=== PATIENT | male | born 1960 | race Caucasian/White ===

== ENCOUNTER 2017-03-30 11:49 | Emergency (ER) | payer OTHER ==
[2017-03-30] MEDS ORDERED: NS 1,000 ML IV ONE ×2 (12:46→13:08)
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
[2017-03-30 12:56] LABS: LEUKOCYTE ESTERASE,URINE NEGATIVE (NEGATIVE); NITRITE,URINE NEGATIVE (NEGATIVE); PH,URINE 6.5 (5.0-7.5)
[2017-03-30 13:12] LABS: % IMMATURE GRANULYOCYTES 0.4 % (0.0-1.1); ABSOLUTE IMMATURE GRANULOCYTES 0.04 10^3/uL (0.00-0.10); ADD DIFF? NO; ADD MORPH? NO; ADD SCAN? YES; FRAGMENT RBC FLAG 0 (0-99); HEMATOCRIT 47.3 % (40.0-51.0); HEMOGLOBIN 15.9 g/dL (13.7-17.5); LEFT SHIFT FLG 0 (0-99); LIPEMIA HEMOLYSIS FLAG 80 (0-99); MEAN CELL HEMOGLOBIN 30.4 pg (27.9-34.1); MEAN CELL HEMOGLOBIN CONCENTR. 33.6 g/dL (32.4-36.7); MEAN CELL VOLUME 90.4 fL (81.5-99.8); MEAN PLATELET VOLUME 8.9 fL (8.7-11.7); PLATELET CLUMPS FLAG 20 (0-99); PLATELET COUNT 263 10^3/uL (150-400); RED BLOOD CELL COUNT 5.23 10^6/uL (4.40-6.38); RED CELL DISTRIBUTION WIDTH 13.9 % (11.5-15.2)
[2017-03-30 13:35] LABS: ATYPICAL LYMPHOCYTE FLAG 180 (0-99)
[2017-03-30 13:37] LABS: SCAN POSITIVE
[2017-03-30] MEDS ORDERED: IOPAMIDOL (ISOVUE 370) 100 ML BTL IV ONE (13:37)
[2017-03-30 13:39] LABS: ALANINE AMINOTRANSFERASE 268 IU/L (21-72); ALBUMIN 3.7 g/dL (3.5-5.0); ALKALINE PHOSPHATASE 235 IU/L (38-126); ANION GAP 14 mEq/L (8-16); ASPARTATE AMINOTRANSFERASE 101 IU/L (17-59); BILIRUBIN,TOTAL 1.2 mg/dL (0.1-1.4); BILIRUBIN-CONJUGATED 0.7 mg/dL (0.0-0.5); BILIRUBIN-UNCONJUGATED 0.5 mg/dL (0.0-1.1); CARBON DIOXIDE 26 mEq/l (22-31); CHLORIDE 102 mEq/L (97-110); CREATININE 0.8 mg/dL (0.7-1.3); GLOMERULAR FILTRATION RATE > 60; GLUCOSE 138 mg/dL (70-100); POTASSIUM 3.9 mEq/L (3.5-5.2); SODIUM 142 mEq/L (134-144); TOTAL PROTEIN 6.9 g/dL (6.3-8.2)
[2017-03-30 13:45] LABS: PLATELET ESTIMATE ADEQUATE (ADEQ)
[2017-03-30 13:57] LABS: COLOR OTHER
[2017-03-30 13:58] LABS: AMORPHOUS 1+ /hpf (NONE-1+); BACTERIA TRACE /hpf (NONE SEEN); MUCUS 1+ /lpf (NONE-1+); YEAST OCCASIONAL /hpf (NONE SEEN)
[2017-03-30] MEDS ORDERED: HYOSCYAMINE SULFATE 0.125 MG TAB PO ONE (15:25)
[2017-03-30] MEDS ORDERED: MAG HYDROX/AL HYDROX/SIMETH 30 ML UDCUP PO ONE (15:25)
[2017-03-30] MEDS ORDERED: LIDOCAINE 2% VISCOUS 15 ML UDCUP PO ONE (15:25)
[2017-03-30 15:26] VITALS: O2SAT 92
[2017-03-30 16:45] VITALS: BP 118/80; PULSE 93; RESP 16; TEMP 98.6
== END 2017-03-30 16:33 | disposition home or self-care (01) ==
LOC: CED 11:49
DX: K29.00 Acute gastritis without bleeding (principal); Z87.891 Personal history of nicotine dependence
CPT/HCPCS: 71275-PO; 74177-PO; 80053-PO; 81003-PO; 81015-PO; 82248-PO; 83690-PO; 85025-PO; 85378-PO; 93970-PO; G0472; Q9967

== ENCOUNTER 2017-04-04 12:55 | Emergency (ER) | payer SELFPAY ==
[2017-04-04] MEDS ORDERED: NS 1,000 ML IV ONE ×2 (14:14→15:30)
--- NOTE | 2017-04-04 14:26 | EDPHY ---
H & P Stated Complaint: shaky /weak/dx sinus inf/stopped amoxicillin early/not helping Source: Patient Exam Limitations: No limitations - Personal History Current Tetanus/Diphtheria Vaccine: Yes - Medical/Surgical History Hx Asthma: No Hx Chronic Respiratory Disease: No Hx Diabetes: No Hx Cardiac Disease: No Hx Renal Disease: No Hx Cirrhosis: No Hx Alcoholism: No Hx HIV/AIDS: No Hx Splenectomy or Spleen Trauma: No Other PMH: Med hx-thyroid. Surg-tonsils,left 2nd digit finger - Family History Significant Family History: No pertinent family hx - Social History Smoking Status: Former smoker Alcohol Use: Sober Drug Use: None Time Seen by Provider: 04/04/17 14:03 HPI/ROS: CHIEF COMPLAINT: Fevers, chills, body aches fatigue HISTORY OF PRESENT ILLNESS: The patient is a 56-year-old man from [place] who comes to the emergency department complaining of fevers, chills, body aches and fatigue. He states that he cannot walk more than a few steps without getting fatigued. He denies shortness of breath but does state that he feels short of breath when he walks. She denies chest pain. He denies headache. He has had the symptoms for 3 weeks. They have been intermittent for about 2-3 days at a time and then he has felt okay for a day or 2. He was seen in [place] 10 days ago and was diagnosed with sinus infection and started on amoxicillin which he took for 10 days and then quit because it was not helping. He continues to have sinus congestion as well as a mildly sore throat. He also complains of intermittent upper abdominal pain but no nausea vomiting. No diarrhea. She did travel to [facility] in December of this year. He was told that it was and not a malarial region. REVIEW OF SYSTEMS: Constitutional: See HPI EENTM: See HPI denies: blurred vision, double vision Respiratory: denies: cough, shortness of breath Cardiac: denies: chest pain, irregular heart rate, lightheadedness, palpitations Gastrointestinal/Abdominal: denies: abdominal pain, diarrhea, nausea, vomiting, blood streaked stools Genitourinary: denies: dysuria, frequency, hematuria, pain Musculoskeletal: Diffuse body aches Skin: denies: lesions, rash, jaundice, bruising Neurological: denies: headache, numbness, paresthesia, tingling, dizziness, weakness Hematologic/Lymphatic: denies: blood clots, easy bleeding, easy bruising Immunologic/allergic: denies: HIV/AIDS, transplant EXAM: GENERAL: Well-appearing, well-nourished and in no acute distress. HEAD: Atraumatic, normocephalic. EYES: Pupils equal round and reactive to light, extraocular movements intact, sclera anicteric, conjunctiva are normal. ENT: TMs normal, nares patent, oropharynx clear without exudates. Moist mucous membranes. NECK: Normal range of motion, supple without lymphadenopathy or JVD. LUNGS: Breath sounds clear to auscultation bilaterally and equal. No wheezes rales or rhonchi. HEART: Regular rate and rhythm without murmurs, rubs or gallops. ABDOMEN: Soft, nontender, normoactive bowel sounds. No guarding, no rebound. No masses appreciated. BACK: No CVA tenderness, no spinal tenderness, step-offs or deformities EXTREMITIES: Normal range of motion, no pitting or edema. No clubbing or cyanosis. NEUROLOGICAL: Cranial nerves II through XII grossly intact. Normal speech, normal gait. 5/5 strength, normal movement in all extremities, normal sensation PSYCH: Normal mood, normal affect. SKIN: Warm, dry, normal turgor, no visible rashes or lesions. (Cristian Cason) Constitutional: Initial Vital Signs Temperature (C) 36.5 C 04/04/17 13:03 Heart Rate 98 04/04/17 13:03 Respiratory Rate 18 04/04/17 13:03 Blood Pressure 146/58 H 04/04/17 13:03 O2 Sat (%) 94 04/04/17 13:03 O2 Delivery Mode Room Air Allergies/Adverse Reactions: No Known Allergies Allergy (Verified 04/04/17 13:02) Home Medications: Medication Instructions Recorded Testosterone 03/30/17 Thyroid 03/30/17 Azithromycin [Zithromax] 250 mg PO DAILY #4 tab 04/04/17 Medical Decision Making - Diagnostics Imaging: Discussed imaging studies w/ call center agent Radiologist, I viewed and interpreted images myself - Diagnostics EKG Interpretation: An EKG obtained and was read and documented in trace view. Please see trace view for full reading and report. Sinus rhythm, he the no acute ischemic changes (Cristian Cason) Imaging Results: Imaging Impressions Brain MRI 04/04/17 17:19 Impression: 1. A few nonspecific hyperintense T2/FLAIR signal abnormalities in the periventricular white matter of both frontal lobes. Differential diagnosis includes microvascular ischemic disease, post-infectious/post-inflammatory sequela, atypical demyelinating disease, or migraine-related sequela. 2. No abnormal intracranial mass or enhancement. Findings discussed with Cinthya Melendez MD at 19:03 hour, 04/04/2017. ED Course/Re-evaluation: 3:15 p.m. the patient continues to look well. He is stable vital signs. Initial lab results are unremarkable. Lactate is 1.5. He is I spoke with Dr. Murillo who recommends also a Monospot test, Ebstein Calderón virus, HIV and CMV testing. The patient has a follow-up appoint with Dr. Sushma Sloan on . I spoke with the patient and and agree that overall he is doing well and will likely be able to go back home to follow up with infectious disease on . care transferred to Dr. Cinthya Melendez. (Cristian Cason) Differential Diagnosis: Partial list of the Differential diagnosis considered include but were not limited to; Viral infection, malaria, influenza, strep throat and although unlikely based on the history and physical exam, I also considered HIV, EBV, CMV, mono. (Cristian Cason) Other Provider: 1500: Patient care was transferred to [place] by Dr. Cason at shift change. 1642: This is a 56 y/o male complaining of a relapsing fever over the last 3-4 weeks and new onset tremors worsening over the last week. He reports he has tremors with intention but not at rest. The tremors keep him from working on the computer and cause difficulty eating. Patient demonstrates that he has fine tremors of his hands when trying to lift a cup to his lips to drink. He is quite tremors when moving and shifting his body in the bed. There are no tremors at rest. He does not notice tremors while walking, though his friend at bedside reports she does see shaking when he walks. He has associated dizziness with some movement. He reports he drinks wine occasionally. Social History: Speaks Flemish. He reports he drinks 1-2 glasses of wine occasionally. Friend at bedside. On exam he has some difficulty with [id number] on the left and seems slightly off balance when standing. When asked to readjust himself in the bed he has a significant amount of shaking and difficulty moving. Head CT negative for acute findings. Plan for brain MRI. 1744: Consulted with JANELL Duarte. He cannot identify a specific infectious cause for the patient's symptoms beyond side effects from ongoing viral syndrome. He agrees with plan for brain MRI. Reassessment: I discussed work-up with the patient. Brain MRI negative. His swab is positive for strep. We discussed causes of the patient's difficulty with fine motor movements. I offered him admission to the hospital. He and his state that they would prefer to be discharged home. He will rest tomorrow. She will ensure that he drinks plenty of fluid. He will be following up on Monday with infectious disease. The understand that they may need a neurology follow-up these tremors continue. He has not fallen at home states he feels safe when walking. I discussed penicillin, amoxicillin, or azithromycin for strep infection. Patient would prefer to be placed on azithromycin. Has previously been on amoxicillin several weeks ago when diagnosed with sinusitis. He will follow up with infectious diseases and was given strict return precautions. He understood and agreed to the plan. (Cinthya Melendez) - Data Points Laboratory Results: Laboratory Results 04/04/17 14:10 04/04/17 14:10 Medications Given: Discontinued Medications Azithromycin (Zithromax) 500 mg PO EDNOW ONE PRN Reason: Protocol Stop: 04/04/17 19:18 Last Admin: 04/04/17 19:39 Dose: 500 mg Sodium Chloride (Ns) 1,000 mls @ 0 mls/hr IV ONCE ONE PRN Reason: Wide Open Stop: 04/04/17 14:15 Last Admin: 04/04/17 14:15 Dose: 1,000 mls Sodium Chloride (Ns) 1,000 mls @ 0 mls/hr IV ONCE ONE PRN Reason: Wide Open Stop: 04/04/17 15:31 Last Admin: 04/04/17 15:30 Dose: 1,000 mls Penicillin V Potassium (Pen Vk) 500 mg PO EDNOW ONE PRN Reason: Protocol Stop: 04/04/17 19:06 Last Admin: 04/04/17 19:22 Dose: Not Given Departure - Departure Disposition: Home, Routine, Self-Care Clinical Impression: Intermittent fever of unknown origin Condition: Good Instructions: Fever in Adults (ED), Viral Syndrome (ED) Additional Instructions: Follow-up at Infectious Disease as previously scheduled. Further testing has been ordered and will be available at that re-evaluation. Continue to get plenty of rest, drink plenty of fluid. Continues Tylenol or ibuprofen as needed to control your fevers. Please take azithromycin as directed , 250 mg each evening starting tomorrow for 4 days to treat your strep throat. Return to the emergency department or seek care urgently if your tremors are worsening, if you are falling, if you feel significantly off balance, if you developed double vision, vomiting, severe headache, neck pain, or other concerns. Referrals: NONE *PRIMARY CARE P,. [Primary Care Provider] - As per Instructions Stand Alone Forms: Airline Excuse Prescriptions: Azithromycin [Zithromax] 250 mg PO DAILY #4 tab
[2017-04-04 14:30] LABS: % IMMATURE GRANULYOCYTES 0.3 % (0.0-1.1); ABSOLUTE IMMATURE GRANULOCYTES 0.03 10^3/uL (0.00-0.10); ADD DIFF? NO; ADD MORPH? NO; ADD SCAN? YES; FRAGMENT RBC FLAG 0 (0-99); HEMATOCRIT 52.8 % (40.0-51.0); HEMOGLOBIN 17.6 g/dL (13.7-17.5); LEFT SHIFT FLG 0 (0-99); LIPEMIA HEMOLYSIS FLAG 80 (0-99); MEAN CELL HEMOGLOBIN 30.3 pg (27.9-34.1); MEAN CELL HEMOGLOBIN CONCENTR. 33.3 g/dL (32.4-36.7); MEAN CELL VOLUME 90.9 fL (81.5-99.8); PLATELET CLUMPS FLAG 10 (0-99); PLATELET COUNT 359 10^3/uL (150-400); RED BLOOD CELL COUNT 5.81 10^6/uL (4.40-6.38); RED CELL DISTRIBUTION WIDTH 13.9 % (11.5-15.2)
[2017-04-04 14:33] LABS: ATYPICAL LYMPHOCYTE FLAG 110 (0-99)
--- NOTE | 2017-04-04 14:36 | CPEKG ---
Heart Rate: 99 RR Interval: 606 P-R Interval: 122 QRSD Interval: 84 QT Interval: 340 QTC Interval: 437 P [place]: 43 QRS [place]: -15 T Wave [place]: 86 EKG Severity - ABNORMAL ECG - EKG Impression: SINUS RHYTHM EKG Impression: LEFT ATRIAL ABNORMALITY EKG Impression: BORDERLINE LEFT AXIS DEVIATION EKG Impression: BORDERLINE T WAVE ABNORMALITIES Electronically Signed By: Cristian Cason 04-Apr-2017 14:42:48
[2017-04-04 14:44] LABS: PROTIME(PATIENT) 13.1 SEC (12.0-15.0)
[2017-04-04 14:45] LABS: APTT 31.4 SEC (23.0-38.0)
[2017-04-04 14:56] LABS: ALANINE AMINOTRANSFERASE 151 IU/L (21-72); ALBUMIN 4.7 g/dL (3.5-5.0); ALKALINE PHOSPHATASE 184 IU/L (38-126); ANION GAP 14 mEq/L (8-16); ASPARTATE AMINOTRANSFERASE 57 IU/L (17-59); BILIRUBIN,TOTAL 1.5 mg/dL (0.1-1.4); BILIRUBIN-CONJUGATED 0.6 mg/dL (0.0-0.5); BILIRUBIN-UNCONJUGATED 0.9 mg/dL (0.0-1.1); CALCIUM 9.9 mg/dL (8.5-10.4); CARBON DIOXIDE 24 mEq/l (22-31); CHLORIDE 102 mEq/L (97-110); GLOMERULAR FILTRATION RATE > 60; GLUCOSE 104 mg/dL (70-100); POTASSIUM 4.9 mEq/L (3.5-5.2); SODIUM 140 mEq/L (134-144); TOTAL PROTEIN 8.1 g/dL (6.3-8.2)
[2017-04-04 15:16] LABS: SCAN POSITIVE
[2017-04-04 15:36] LABS: PLATELET ESTIMATE ADEQUATE (ADEQ)
[2017-04-04 15:41] LABS: MONO TEST NEGATIVE (NEGATIVE)
[2017-04-04 15:45] LABS: COLOR YELLOW; LEUKOCYTE ESTERASE,URINE NEGATIVE (NEGATIVE); NITRITE,URINE NEGATIVE (NEGATIVE)
[2017-04-04 15:52] LABS: MUCUS 1+ /lpf (NONE-1+)
[2017-04-04] MEDS ORDERED: GADOBUTROL 10 ML VIAL IVP ONE (18:30)
[2017-04-04] MEDS ORDERED: PENICILLIN VK 500 MG TAB PO ONE (19:05)
[2017-04-04] MEDS ORDERED: AZITHROMYCIN 250 MG TAB PO ONE (19:17)
[2017-04-04 19:30] LABS: MALARIAL PREP NONE SEEN (NONE SEEN)
[2017-04-04 19:40] VITALS: BP 131/86; PULSE 96; RESP 18; TEMP 97.3; O2SAT 94
[2017-04-05 13:54] LABS: ANTI EBNA Positive (Negative); ANTI VCA/IgG Positive (Negative); ANTI VCA/IgM Negative (Negative)
== END 2017-04-04 19:41 | disposition home or self-care (01) ==
DX: R50.9 Fever, unspecified (principal); Z87.891 Personal history of nicotine dependence
CPT/HCPCS: 86644-90; 86645-90; 86664-90; 86665-90; A9585